=== PATIENT | female | born 1955 | race Caucasian/White ===

== ENCOUNTER → 2016-05-16 | Outpatient (CLI) | payer OTHER ==
--- NOTE | 2016-05-16 17:51 | CT ---
CT of the Chest (Without Contrast) Clinical Indications: Bronchiectasis and pulmonary nodules. Follow up Comparison: May 11, 2015. Technique: Multidetector helical CT imaging was performed from the superior thoracic inlet to the di aphragm. The radiologist manipulated images at the computer workstation. Dose reduction techniques w ere utilized. Findings: Lung windows: Ovoid nodule in the posterior right upper lobe, image #47, 10 x 5.8 mm, is unchanged; r ounded nodule in the right upper lobe posterior, image #57 measuring 7.3 x 8.4 mm, is unchanged. Cys tic bronchiectasis or cavity, lateral right upper lobe, 9.8 x 6.7 mm, is unchanged. Elliptical nodule , left upper lobe, 12 x 6.4 mm, is also unchanged. Ovoid nodule, 7.5 x 5.5 mm, right middle lobe, sylvain ge 107, is unchanged. Right lower lobe, image 128, 6 x 6 mm nodule, unchanged. Multiple other pulmona ry nodules are also unchanged. There are no new pulmonary nodules. Area of consolidation and mild tracheobronchial nodules in the right lower lobe are stable. No new co nsolidation. Lung bases are otherwise relatively spared. Mediastinal windows: No atherosclerotic calcifications. Several of the nodules contain calcification s, consistent with granulomatous disease. The noncontrasted evaluation of the upper abdomen is within normal limits. Impression: No change in interstitial lung disease and multiple pulmonary nodules.
== END ==
LOC: CIMAGING 13:18
PROVIDERS: ATTEND Internal Medicine Pulmonary Disease
DX: J47.9 Bronchiectasis, uncomplicated (principal); R91.1 Solitary pulmonary nodule
CPT/HCPCS: 71250-PO

== ENCOUNTER → 2017-09-12 | Outpatient (CLI) | payer BC, OTHER | LOC: FIMAGING 15:02 | PROVIDERS: ATTEND Family Medicine | DX: Z12.31 Encounter for screening mammogram for malignant neoplasm of breast (principal); Z80.3 Family history of malignant neoplasm of breast ==

== ENCOUNTER → 2018-01-31 | Outpatient (CLI) | payer BC | LOC: FIMAGING 11:07 | PROVIDERS: ATTEND Family Medicine | DX: Z13.820 Encounter for screening for osteoporosis (principal); M81.0 Age-related osteoporosis without current pathological fracture ==

== ENCOUNTER → 2018-03-21 | Outpatient (CLI) | payer BC | LOC: CIMAGING 13:22 | PROVIDERS: ATTEND Internal Medicine Pulmonary Disease | DX: R91.1 Solitary pulmonary nodule (principal); J47.9 Bronchiectasis, uncomplicated | CPT/HCPCS: 71250-PO ==

== ENCOUNTER → 2018-04-08 | Outpatient (CLI) | payer BC | LOC: FIMAGING 07:47 | DX: M79.672 Pain in left foot (principal) ==